=== PATIENT | female | born 1970 | race Caucasian/White ===

== ENCOUNTER 2016-11-17 19:06 | Emergency (ER) | payer MEDICARE ==
[~2016-11-17] VITALS: Ht 160 cm; Wt 59.0 kg
[~2016-11-17 19:06] MED LIST: FLT05NA16 NS; HYOS0.1216 PO; IBP800T PO; IBUP-30 PO; IMIP25TA4 PO; IMIP50TA4 PO; LVT.088T PO; LVT.1T PO; PNT40TEC PO; PRM25T PO; PROP20TA23 PO; SMTR50T PO; TPR25T PO; TRM50T PO
[2016-11-17] MEDS ORDERED: METO-272 PO (19:26)
[2016-11-17] MEDS ORDERED: ISOS30TA3 PO (19:26)
[2016-11-17] MEDS ORDERED: NS IV 1000 ML 1,000 ML IV ONE (19:50)
--- NOTE | 2016-11-17 20:09 | ED Neurological Problem ---
General Chief Complaint: Head/Cervical Problems Stated Complaint: "NOT FEELING WELL" AND DIZZY Nursing Triage Note: Pt reports she was in the middle of dinner and became weak, limp, and dizzy. pt presents to ed via [facility]. pt is alert upon arrival but still complains of dizziness, flushed feeling in her face, and Headache. Nursing Sepsis Screen: No Definite Risk Source: patient, spouse Exam Limitations: no limitations History of Present Illness Time seen by provider: 19:45 Initial Comments 46-year-old female patient presents to the emergency department with complaints of becoming very weak and dizzy in the middle of eating dinner. Patient states she recently has been trying to eat a chemical free diet. States the only thing different that she was eating was raw beats. Patient reports in the middle of dinner the room began spinning and patient reportedly "went limp." Patient is being treated for Graves' disease by Dr. Kern in [place]. Also sees Nida Stubbs in [place], [place]. Patient reports recently had her levothyroxine increased. Patient does complain of occipital headache, rash of the face, swelling of the lower lip. Feels flushed. Patient states she has both hyperthyroidism and hypothyroidism with "daily thyroid storms." states they normally "take care of the thyroid storms at home, but today was more severe." Timing/Duration: 1-3 hours Severity: moderate Allergies and Home Medications Allergies Coded Allergies: codeine (Verified Allergy, Unknown, 06/18/12) diazepam (Verified Allergy, Unknown, 06/18/12) meperidine (Verified Allergy, Unknown, 06/18/12) morphine (Verified Allergy, Unknown, 06/18/12) Uncoded Allergies: raw beets (Allergy, Unknown, 11/17/16) Home Medications Famotidine 20 Mg Tablet #20 20 MG PO BID prn allergic reaction Prescribed by: TEODORO DOMINGO on 11/17/167 Isosorbide Mononitrate 30 Mg Tab.er.24h 30 MG PO DAILY (Reported) Levothyroxine Sodium 100 Mcg Tablet 100 MCG PO DAILY (Reported) Meclizine HCl 25 Mg Tab.chew #20 25 MG PO Q6H PRN PRN VERTIGO Prescribed by: TEODORO DOMINGO on 11/17/16 2241 Metoprolol Succinate 50 Mg Tab.er.24h 50 MG PO DAILY (Reported) Prednisone 20 Mg Tab #6 20 MG PO BID Prescribed by: TEODORO DOMINGO on 11/17/169 Constitutional: No chills, No diaphoresis, dizzinessNo fever, No malaise, weakness (generalized)No weight gain, No weight loss Eyes: Denies Blurred Vision, Denies Drainage, Denies Decreased Acuity, Denies Pain, Denies Photophobia, Denies Tunnel Vision, Denies Vision Changes Ears, Nose, Mouth, Throat: no symptoms reported Respiratory: no symptoms reported Cardiovascular: no symptoms reported Gastrointestinal: No abdominal pain, No constipation, No diarrhea, No nausea, No vomiting Genitourinary: no symptoms reported Musculoskeletal: no symptoms reported Skin: see HPINo pruritus, rash Psychiatric/Neurological: See HPIDenies Cognitive Dysfunction, HeadacheDenies Numbness, Denies [place] Seizures, Denies Tingling, Denies Tonic Clonic Seizures, Denies Unable to Move Lower Ext, Denies Unable to Move Upper Ext, Denies Weakness Endocrine: Denies Excessive Sweating, FlushingDenies Intolerance to Cold, Denies Intolerance to Heat, Denies Increased Hunger, Denies Increased Thrist, Denies Increased Urine, Denies Unexplained Weight Gain, Denies Unexplaned Weight Loss All Other Systems Reviewed Negative Unless Noted: Yes (Negative excepted noted.) Past Ynwrlnb-Bnavpp-Nrkzmb Hx Patient Social History Alcohol Use: Denies Use Recreational Drug Use: No Smoking Status: Former Smoker Type Used: Cigarettes Recent Foreign Travel: No Contact w/Someone Who Travel: No Recent Infectious Disease Expo: No Recent Hopitalizations: No Immunizations Up To Date Tetanus Booster (TDap): More than 5yrs Date of Pneumonia Vaccine: Jul 14, 2011 Date of Influenza Vaccine: Jul 14, 2011 Surgeries HX Surgeries: Yes (D&C, heart cath) Respiratory Hx Respiratory Disorders: No Cardiovascular Hx Cardiac Disorders: Yes Cardiac Disorders: High Cholesterol, Hypertension, Palpitations Neurological Hx Neurological Disorders: No Reproductive System Hx Reproductive Disorders: No Sexually Transmitted Disease: No HIV/AIDS: No Female Reproductive Disorders: Denies Genitourinary Hx Genitourinary Disorders: No Gastrointestinal Hx Gastrointestinal Disorders: Yes (Chronic abdominal pain) Musculoskeletal Hx Musculoskeletal Disorders: No Endocrine Hx 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) Endocrine Disorders: Hyperthyroidism, Hypothyroidsim HEENT HX ENT Disorders: No Loss of Vision: Denies Hearing Impairment: Denies Cancer Hx Cancer: No Psychosocial Hx Psychiatric Problems: No Integumentary HX Skin/Integumentary Disorder: No Blood Transfusions Hx Blood Disorders: No Adverse Reaction to a Blood Tr: No Reviewed Nursing Assessment Reviewed/Agree w Nursing PMH: Yes Family Medical History Significant Family History: No Pertinent Family Hx Family Medial History: Alcoholism 19 FATHER 19 MOTHER G8 BROTHER G8 SISTER Arthritis 19 FATHER Cardiovascular disease G8 BROTHER Completed stroke G8 BROTHER Coronary thrombosis G8 BROTHER Drug abuse G8 BROTHER G8 SISTER Hypercholesterolemia G8 BROTHER G8 SISTER Hypertension 19 MOTHER G8 BROTHER G8 SISTER Kidney disease G8 BROTHER Myocardial infarction G8 BROTHER Neoplasm 19 MOTHER Parkinson's disease 19 FATHER Psychosocial problem 19 FATHER 19 MOTHER G8 BROTHER G8 SISTER Seizure disorder G8 BROTHER Tuberculosis G8 BROTHER No Family History of: AIDS Abdominal aortic aneurysm Grainger's disease Alzheimer's disease Aphasia Asthma Cancer of mouth Cataracts Colon cancer Congenital disease Congenital heart disease Cystic fibrosis Deafness or hearing loss Dementia Diabetes mellitus Dysphasia Fibrocystic disease of breast Gastroenteritis Glaucoma Headache disorder Infertility Not obtainable due to adoption Osteoporosis Prostate cancer Respiratory disorder Severe allergy Thyroid disease Visual disorder Physical Exam Vital Signs Vital Sign - Last 12Hours 11/17/16 19:11 Temp 97.9 Pulse 79 Resp 18 B/P 135/81 Pulse Ox 97 O2 Delivery Room Air Capillary Refill : Less Than 3 Seconds General Appearance: WD/WN no apparent distress HEENT: PERRL/EOMI normal ENT inspection TMs normal pharynx normal Neck: non-tender full range of motion supple other (positive goiter. Nontender.) Respiratory: lungs clear normal breath sounds no respiratory distress Cardiovascular: normal peripheral pulses regular rate, rhythm no edema no murmur Peripheral Pulses: 2+ Dorsalis Pedis (R), 2+ Left Dors-Pedis (L), 2+ Radial Pulses (R), 2+ Radial Pulses (L) Gastrointestinal: normal bowel sounds non tender soft no organomegalyNo distended Back: normal inspection Extremities: normal inspection no pedal edema no calf tenderness normal capillary refill Neurologic/Psychiatric: casing runner II-XII nml as tested no motor/sensory deficits alert normal mood/affect oriented x 3 Crainal Nerves: normal hearing normal speech PERRL Coordination/Gait: normal finger to nose normal gait Motor/Sensory: no motor deficit no sensory deficit no pronator drift Skin: warm/dryNo cyanosis, No cool, No diaphoresis, No damp, No mottled, No pallor, other (erythematous rash of the face. No facial swelling appreciated.) Stroke Stroke Thrombolytic Exclusion Age 18 or Over: Yes History of CVA: No Severe Hypertension: No GI or Bleed: No Subarachnoid Hemorrhage: No Intracranial Neoplasm/Aneurysm: No Progress/Results/Core Measures Results/Orders Lab Results Laboratory Tests Test 11/17/16 19:20 11/17/16 19:32 Range/Units Urine Bacteria NONE /HPF Urine Bilirubin NEGATIVE NEGATIVE Urine Casts NONE /LPF Urine Clarity CLEAR Urine Color RED H Urine Crystals NONE /LPF Urine Culture Indicated NO Urine Glucose (UA) NEGATIVE NEGATIVE Urine Ketones NEGATIVE NEGATIVE Urine Leukocyte Esterase 2+ H NEGATIVE Urine Mucus NEGATIVE /LPF Urine Nitrite NEGATIVE NEGATIVE Urine Protein 3+ H NEGATIVE Urine RBC >100 H /HPF Urine RBC (Auto) 5+ H NEGATIVE Urine Specific [place] 1.010 L 1.016-1.022 Urine Squamous Epithelial Cells 0-2 /HPF Urine Urobilinogen NORMAL NORMAL MG/DL Urine WBC 0-2 /HPF Urine pH 8 5-9 Alanine Aminotransferase (ALT/SGPT) 9 0-55 U/L Albumin 4.2 3.2-4.5 G/DL Alkaline Phosphatase 53 40-136 U/L Anion Gap 11 5-14 MMOL/L Aspartate Amino Transf (AST/SGOT) 14 5-34 U/L BUN/Creatinine Ratio 10 Basophils # (Auto) 0.1 0.0-0.1 10^3/uL Basophils (%) (Auto) 1 0-10 % Blood Urea Nitrogen 8 7-18 MG/DL C-Reactive Protein High Sensitivity 0.02 0.00-0.50 MG/DL Calcium Level 9.3 8.5-10.1 MG/DL Carbon Dioxide Level 23 21-32 MMOL/L Chloride Level 105 98-107 MMOL/L Creatinine 0.82 0.60-1.30 MG/DL D-Dimer 0.38 0.00-0.49 UG/ML Eosinophils # (Auto) 0.2 0.0-0.3 10^3/uL Eosinophils (%) (Auto) 2 0-10 % Estimat Glomerular Filtration Rate > 60 Free Thyroxine 1.34 0.70-1.48 NG/DL Glucose Level 91 70-105 MG/DL Hematocrit 41 35-52 % Hemoglobin 14.0 11.5-16.0 G/DL Lymphocytes # (Auto) 3.2 1.0-4.0 X 10^3 Lymphocytes (%) (Auto) 32 12-44 % Magnesium Level 2.2 1.8-2.4 MG/DL Mean Corpuscular Hemoglobin 31 25-34 PG Mean Corpuscular Hemoglobin Concent 34 32-36 G/DL Mean Corpuscular Volume 92 80-99 FL Mean Platelet Volume 10.0 7.4-10.4 FL Monocytes # (Auto) 0.9 0.0-1.0 X 10^3 Monocytes (%) (Auto) 9 0-12 % Neutrophils # (Auto) 5.6 1.8-7.8 X 10^3 Neutrophils (%) (Auto) 56 42-75 % Platelet Count 349 130-400 10^3/uL Potassium Level 4.0 3.6-5.0 MMOL/L Red Blood Count 4.47 4.35-5.85 10^6/uL Red Cell Distribution Width 12.2 10.0-14.5 % Sodium Level 139 135-145 MMOL/L Thyroid Stimulating Hormone (TSH) 1.58 0.35-4.94 UIU/ML Total Bilirubin 0.6 0.1-1.0 MG/DL Total Protein 6.9 6.4-8.2 G/DL White Blood Count 9.9 4.3-11.0 10^3/uL My Orders Orders-TEODORO DOMINGO Ct Head Wo (11/17/16 20:11) Meclizine Tablet (Antivert Tablet) (11/17/16 20:11) Ondansetron Injection (Zofran Injectio (11/17/16 20:15) Ketorolac Injection (Toradol Injection) (11/17/16 20:11) Famotidine Tablet (Pepcid Tablet) (11/17/16 21:33) Diphenhydramine Injection (Benadryl Inje (11/17/16 21:33) Methylprednisolone Sod Succ (Solu-Medrol (11/17/16 21:33) Medications Given in ED Vital Signs/I&O Vital Sign - Last 12Hours 11/17/16 11/17/16 19:11 22:40 Temp 97.9 97.9 Pulse 79 86 Resp 18 18 B/P 135/81 Pulse Ox 97 97 O2 Delivery Room Air Blood Pressure Mean: 99 Diagnostic Imaging Diagonstic Imaging: CT Plain Films/CT/US/NM/MRI: head Comments FINDINGS: Noncontrast CT scan of the head demonstrates no mass effect, midline shift, hemorrhage, or extra-axial fluid collections. Jefferson-white matter differentiation is normal. Bone windows appear normal. IMPRESSION: Normal CT scan of the head. Dictated by: Dictated on workstation # [id number] Reviewed: Reviewed by Me (radiology report reviewed by me) Departure Communication Progress Notes All laboratory and diagnostic findings discussed with the patient and spouse. Patient states she feels like her rash is getting worse and her lips are swelling more. facial exam shows increased erythematous rash without swelling appreciated. Patient alert and oriented 3, no acute distress. Patient given Benadryl, Pepcid, and Solu-Medrol with improvement in symptoms. Patient discharged to home with prednisone. Instructed to use Pepcid and Benadryl over- the-counter. Claritin, Marjorie, or Zyrtec for residual itching or rash. Patient instructed follow-up with her primary care physician for recheck early this week and to call for appointment time Saturday. All return precautions were discussed with the patient as described in the discharge instructions of this report. Patient voices understanding and agrees with the treatment plan. Patient case discussed with Bentley Cabrera MD. He agrees with the plan of care. Impression Impression: Primary Impression: Allergic reaction to food Qualified Code: T78.1XXA - Other adverse food reactions, not elsewhere classified, initial encounter Additional Impressions: Hx of Agustín thyroiditis Vertigo Disposition: HOME, SELF-CARE Condition: Improved Departure-Patient Inst. Decision time for Depature: 22:16 Referrals: SRINI FIELDS DO (PCP) Primary Care Physician Patient Instructions: Food Allergy, Vertigo (a Type of Dizziness) (DC) Add. Discharge Instructions: All discharge instructions reviewed with patient and/or family. Voiced understanding. Medications as instructed. Benadryl [id number]-[id number] as directed for rash or itching. Avoid the offending agent. Follow-up with her family practitioner for recheck. Return to the emergency department for worsened dizziness, changes in vision, changes in behavior, slurred speech, numbness, weakness, shortness of air, chest pain, seizure, vomiting, fever, or any other concerns. Scripts Meclizine HCl 25 Mg Tab.chew25 Mg PO Q6H PRN VERTIGO #20 TAB Ref 0 Prov:TEODORO DOMINGO 11/17/16 Famotidine (Pepcid)20 Mg Hqferq89 Mg PO BID #20 TAB Ref 0 prn allergic reaction Prov:TEODORO DOMINGO 11/17/16 Prednisone 20 Mg Tab20 Mg PO BID #6 TAB Ref 0 Prov:TEODORO DOMINGO 11/17/16 TEODORO DOMINGO Nov 17, 2016 20:09
[2016-11-17] MEDS ORDERED: MECLIZINE 25 MG (ANTIVERT) TAB PO STA (20:11)
[2016-11-17] MEDS ORDERED: KETOROLAC 30 MG/ML VIAL IVP STA (20:11)
[2016-11-17 20:13] LABS: BASOPHILS # (AUTO) 0.1 10^3/uL (0.0-0.1); BASOPHILS % (AUTO) 1 % (0-10); EOSINOPHILS # (AUTO) 0.2 10^3/uL (0.0-0.3); EOSINOPHILS % (AUTO) 2 % (0-10); LYMPHOCYTES # (AUTO) 3.2 X 10^3 (1.0-4.0); LYMPHOCYTES % (AUTO) 32 % (12-44); MEAN CORPUSCULAR HEMOGLOBIN 31 PG (25-34); MEAN CORPUSCULAR HGB CONC 34 G/DL (32-36); MEAN CORPUSCULAR VOLUME 92 FL (80-99); MONOCYTES # (AUTO) 0.9 X 10^3 (0.0-1.0); MONOCYTES % (AUTO) 9 % (0-12); NEUTROPHILS # (AUTO) 5.6 X 10^3 (1.8-7.8); NEUTROPHILS % (AUTO) 56 % (42-75); PLATELET COUNT 349 10^3/uL (130-400); RED BLOOD COUNT 4.47 10^6/uL (4.35-5.85); RED CELL DISTRIBUTION WIDTH 12.2 % (10.0-14.5); WHITE BLOOD COUNT 9.9 10^3/uL (4.3-11.0)
[2016-11-17] MEDS ORDERED: ONDANSETRON 4 MG/2 ML (SDV) Z0FRAN IVP ONE (20:15)
[2016-11-17 20:43] LABS: ALANINE AMINOTRANSFERASE 9 U/L (0-55); ALBUMIN 4.2 G/DL (3.2-4.5); ANION GAP 11 MMOL/L (5-14); ASPARTATE AMINO TRANSFERASE 14 U/L (5-34); BILIRUBIN,TOTAL 0.6 MG/DL (0.1-1.0); BLOOD UREA NITROGEN 8 MG/DL (7-18); BUN/CREATININE RATIO 10; CALCIUM 9.3 MG/DL (8.5-10.1); CARBON DIOXIDE 23 MMOL/L (21-32); CHLORIDE 105 MMOL/L (98-107); CREATININE SERUM 0.82 MG/DL (0.60-1.30); GFR ESTIMATED > 60; GLUCOSE 91 MG/DL (70-105); MAGNESIUM 2.2 MG/DL (1.8-2.4); SODIUM 139 MMOL/L (135-145); TOTAL PROTEIN 6.9 G/DL (6.4-8.2); hs C REACTIVE PROTEIN 0.02 MG/DL (0.00-0.50)
--- NOTE | 2016-11-17 20:50 | Diagnostic Imaging Report ---
PROCEDURE: CT head without contrast. TECHNIQUE: Multiple contiguous axial images were obtained through the brain without the use of intravenous contrast. INDICATION: Severe dizziness, unresponsive at home COMPARISON STUDY: CT scan of the head dated 11-25-14. FINDINGS: Noncontrast CT scan of the head demonstrates no mass effect, midline shift, hemorrhage, or extra-axial fluid collections. Jefferson-white matter differentiation is normal. Bone windows appear normal. IMPRESSION: Normal CT scan of the head. Dictated by: Dictated on workstation # [id number]
[2016-11-17 21:04] LABS: THYROID STIMULATING HORMONE 1.58 UIU/ML (0.35-4.94)
[2016-11-17 21:15] LABS: BILIRUBIN,URINE NEGATIVE (NEGATIVE); KETONES,URINE NEGATIVE (NEGATIVE); LEUKOCYTE ESTERASE ,URINE 2+ (NEGATIVE); NITRITE,URINE NEGATIVE (NEGATIVE); PH,URINE 8 (5-9); PROTEIN,URINE 3+ (NEGATIVE); UROBILINOGEN,URINE NORMAL (NORMAL)
[2016-11-17 21:23] LABS: SQUAMOUS EPITHELIAL CELL,UR 0-2 /HPF; WBC,URINE 0-2 /HPF
[2016-11-17] MEDS ORDERED: FAMOTIDINE 20 MG (PEPCID) TABLET PO STA (21:33)
[2016-11-17] MEDS ORDERED: diphenhydrAMINE 50 MG/ML INJ (BENADRYL) IV STA (21:33)
[2016-11-17] MEDS ORDERED: methylPREDNISolone 125 MG (Solu-MEDROL) VIAL IV STA (21:33)
[2016-11-17] MEDS ORDERED: PRD20T PO (22:17)
[2016-11-17] MEDS ORDERED: FAMO-119 PO (22:17)
[2016-11-17 22:40] VITALS: BP 101/60
[2016-11-17] MEDS ORDERED: MECL-124 PO (22:41)
== END 2016-11-17 22:40 | disposition home or self-care (01) ==
LOC: EDUNIT# 19:06 → ER 19:08
DX: R42 Dizziness and giddiness (principal); T78.1XXA Other adverse food reactions, not elsewhere classified, initial encounter; E06.3 Autoimmune thyroiditis; I10 Essential (primary) hypertension
CPT/HCPCS: 36415; 70450; 80053; 81000; 83735; 84439; 84443; 85025; 85379; 86141; 96361; 96374; 96375

== ENCOUNTER → 2021-10-18 | Outpatient (CLI) | payer BC, MEDICARE ==
[~2021-10-18] MED LIST changes: +FAMO-119 PO; +ISOS30TA82 PO; +MECL-124 PO; +METO50TA7 PO; +PRD20T PO
--- NOTE | 2021-10-18 11:11 | Diagnostic Imaging Report ---
EXAMINATION: Lumbar spine MRI without contrast from 10/18/2021. TECHNIQUE: Multiplanar, multisequence MRI of the lumbar spine was performed without contrast. INDICATION: Lumbago and sciatica. FINDINGS: There is normal height and alignment of the vertebral bodies. The tip of the conus is unremarkable in appearance and location. T12-L1: There is intervertebral disc space narrowing, disc desiccation, and mild kyphotic deformity with a central disc protrusion. There is bilateral facet hypertrophy. There is secondary mild central stenosis. The neuroforamina appear patent. L1-L2: There is intervertebral disc space narrowing, disc desiccation, and a right paracentral broad-based bulging disc. There is bilateral facet and ligamentum flavum hypertrophy. There is no central stenosis. The neuroforamina appear patent. L2-L3: There is disc desiccation with bilateral facet and ligamentum flavum hypertrophy. There is no central stenosis. Neuroforamina are patent. L3-L4: There is bilateral facet and ligamentum flavum hypertrophy. There is no central stenosis. There is mild broad-based bulging disc material with mild bilateral neuroforaminal narrowing. L4-L5: There is disc desiccation with a mild broad-based bulging disc flattening the ventral thecal sac. There is bilateral facet and ligamentum flavum hypertrophy. There is no central stenosis but there is mild narrowing of the left lateral recess. There is moderate bilateral neuroforaminal narrowing. L5-S1: There is disc desiccation with a central disc protrusion containing an annular tear. There is bilateral facet and ligamentum flavum hypertrophy. There is mild central narrowing. There is moderate bilateral neuroforaminal stenosis. The visualized intra-abdominal structures demonstrate no evidence for acute abnormality. A cystic area in the right upper quadrant may be emanating off of the right kidney or could represent a partially visualized gallbladder. IMPRESSION: 1. Multilevel diffuse degenerative disease as discussed above. Dictated by: Dictated on workstation # [id number]
== END ==
LOC: RAD 09:30
PROVIDERS: ATTEND Nurse Practitioner Family
DX: M47.815 Spondylosis without myelopathy or radiculopathy, thoracolumbar region (principal); M47.816 Spondylosis without myelopathy or radiculopathy, lumbar region; M47.817 Spondylosis without myelopathy or radiculopathy, lumbosacral region; M51.25 Other intervertebral disc displacement, thoracolumbar region; M51.26 Other intervertebral disc displacement, lumbar region; M51.27 Other intervertebral disc displacement, lumbosacral region; M51.35 Other intervertebral disc degeneration, thoracolumbar region; M51.36 Other intervertebral disc degeneration, lumbar region; M51.37 Other intervertebral disc degeneration, lumbosacral region; M48.05 Spinal stenosis, thoracolumbar region; M48.061 Spinal stenosis, lumbar region without neurogenic claudication; M48.07 Spinal stenosis, lumbosacral region; M24.28 Disorder of ligament, vertebrae; M40.294 Other kyphosis, thoracic region
CPT/HCPCS: 72148